=== PATIENT | male | born 1945 | race Caucasian/White ===

== ENCOUNTER 2024-07-02 07:41 | Inpatient (IN) ==
[2024-07-02] MEDS: FAMOTIDINE 20MG IV PUSH 20 MG/5 ML SYR IV STA (08:06)
[2024-07-02] MEDS: ACETAMINOPHEN 1,000 MG/100 ML VIAL IV STA (08:06)
--- NOTE | 2024-07-02 08:08 | Emergency Department Note ---
Impression & Plan Chest pain, Pneumonia ED Provider Note ED Provider Note NAME: BRADY MORIN AGE:79 SEX: Male : 1945 ARRIVES VIA: EMS INFORMANT: Patient ED PROVIDER(s): Layne Crook DO CHIEF COMPLAINT: Chest pain HPI: This is a 79-year-old male presents emergency department via EMS due to 3 to 4 days of intermittent central left chest pain. He denies any radiation of pain into the neck, arms, or back. He states pain is worse with taking deep breath, worse sitting up and standing. Patient states no prior similar episodes. Patient does have a prior history of triple bypass and atrial fibrillation. He is anticoagulated. He denies any recent change in activity or exercise. Denies any recent fevers, chills, or URI symptoms. PAST MEDICAL HISTORY:See Below PAST SURGICAL HISTORY:See Below FAMILY HISTORY:See Below SOCIAL HISTORY:See Below HOME MEDICATIONS:See Below ALLERGIES:See Below VITALS:See Below PHYSICAL EXAMINATION: GENERAL: alert, uncomfortable appearing, well nourished, mild distress, non- toxic EYE EXAM: normal conjunctiva, PERRL and EOM's grossly intact OROPHARYNX: no exudate, no erythema, lips, buccal mucosa, and tongue normal and mucous membranes are moist NECK: supple, no nuchal rigidity, no adenopathy, non-tender LUNGS: Clear to auscultation. Normal chest wall mechanics, no w/r/r HEART: no murmurs, S1 normal and S2 normal, no reproducible pain with palpation. ABDOMEN: abdomen soft, non-tender, normo-active bowel sounds, no masses, no rebound or guarding. BACK: Back is symmetrical on inspection and there is no deformity, no midline tenderness, no CVA tenderness. SKIN: no rashes, petechiae, orbruising UPPER EXTREMITIES: upper extremities are grossly normal. FROM, nml pulses b/l. LOWER EXTREMITIES: No pitting edema. FROM, nml pulses b/l. NEURO EXAM: Normal sensorium, cranial nerves II-XII grossly intact, normal speech, no facial droop,nogross weakness of arms, no gross weakness of legs. Gross sensation intact. No ataxia. Vital Signs: reviewed and remarkable Differential Diagnosis: acute coronary syndrome, pericarditis, pulmonary embolus, aortic dissection, pneumonia, pneumothorax, musculoskeletal pain, shingles, GERD, GI bleed, as well as others were considered MEDICAL DECISION MAKING: CURB 65 - moderate risk This is a 79-year-old male presents emerged part due to 3 to 4 days of intermittent chest pain. No recent trauma. He denied any illness or evolving URI symptoms. He was afebrile and hemodynamically stable on arrival. Labs drawn and sent, IV established, EKG and chest x-ray performed at bedside interpreted by me and patient monitored on telemetry. No acute findings on the EKG. Patient given IV Tylenol, IV Pepcid, and started on IV fluids. Patient noted to have significant leukocytosis of 22. First troponin negative. Chest x-ray is read by outside radiology with possible evolving infiltrate. Due to pain, age, and comorbidities with these new findings, patient sent for CT of the chest. CT revealed pneumonia in the left lower lobe. No PE, or acute vascular pathology noted. I discussed all these results with patient. He was given IV Rocephin, and p.o. challenge. We then discussed use of additional antibiotics. Patient is a former smoker though denies any diagnosis of COPD. Nasal swab for other acute viral illnesses was negative. Patient given oral doxycycline. We did discuss options for disposition. While patient did well in terms of respiratory status during an ambulatory pulse ox, he continued to complain of chest pain and feels weak and more fatigued compared to normal. At significant time in discussion with the patient as well as 2 sisters at bedside regarding his condition. Ultimately decision made to keep patient for further inpatient monitoring and treatment. Case discussed with the hospitalist team for additional evaluation and management. Consultation(s): 1315: Discussed with Ebony Urias hospitalist team, for additional evaluation and management. ER Treatment Provided: See below 1122: Discussed with patient and family at bedside. We did review all results as well as risk associated due to his abnormal labs and comorbidities with pneumonia. Patient has not required oxygen here, has continued to have pain although he states slightly less severe than at home. He does feel slightly more fatigued and weak compared to his normal however admits to chronic back pain and problems walking. He does live with family. We discussed options for disposition. Diagnostics Interpreted By Me: -ECG: Normal sinus at 84, first-degree AV block, normal axis, normal intervals, PVCs noted, no acute ST/T wave change -Cardiac Monitoring: An order was placed for continuous cardiac monitoring. The monitor shows a rate of 80 with normal sinus rhythm. -Laboratory studies: As stated above and show below. -Imaging studies: X-ray Chest: A single view study of the chest was reviewed and was negative for cardiomegaly, focal infiltrate, effusion, pulmonary edema, or wide mediastinum. Triage Nursing Note Reviewed Prior/Outside Records Reviewed Past Med/Surg History Problem List (Updated 07/02/24 @ 13:08 by Layne Crook DO) Pneumonia (Acute) Chest pain (Acute) Social History Smoking Status: Never smoker Hx Alcohol Use: Yes Alcohol type: beer Hx Substance Use: No Preferred Language: Israeli Communication Ability: Effective Phd Intern Required: No Beliefs That Will Affect Care: None Current Living Situation: Spouse Current Living Situation Comment: Lives in [place] with Mery. In [place] with sister for [employer] Feels Safe at Home: Yes Safety Concerns: Feels Safe At This Time Assistive Devices: Glasses and Walker Allergies Allergies Allergy/AdvReac Type Severity Reaction Status Date / Time No Known Allergies Allergy Unverified 07/02/24 09:51 Home Meds Home Medications Medication Instructions Recorded Confirmed allopurinol 100 mg tablet 100 mg PO QPM 07/02/24 07/02/24 amlodipine 10 mg tablet 10 mg PO QAM 07/02/24 07/02/24 carboxymethylcellulose sodium 0.5 1 drp OPB DAILY PRN Dry Eye(S) 07/02/24 07/02/24 % eye drops in a dropperette (Lubricating Plus) celecoxib 200 mg capsule 200 mg PO QAM 07/02/24 07/02/24 cholecalciferol (vitamin D3) 25 25 mcg PO BID 07/02/24 07/02/24 mcg (1,000 unit) tablet ezetimibe 10 mg tablet 10 mg PO QAM 07/02/24 07/02/24 famotidine 40 mg tablet 40 mg PO QAM 07/02/24 07/02/24 losartan 100 1 tab PO QAM 07/02/24 07/02/24 mg-hydrochlorothiazide 12.5 mg tablet metoprolol succinate 100 mg 100 mg PO QPM 07/02/24 07/02/24 tablet,extended release 24 hr multivitamin 1 tab PO QAM 07/02/24 07/02/24 omega-3 acid ethyl esters 1 gram 2 g PO BID 07/02/24 07/02/24 capsule pantoprazole 40 mg tablet,delayed 40 mg PO QAM 07/02/24 07/02/24 release pravastatin 40 mg tablet 40 mg PO QPM 07/02/24 07/02/24 rivaroxaban 20 mg tablet (Xarelto) 20 mg PO QPM 07/02/24 07/02/24 simethicone 80 mg chewable tablet 80 mg PO TID PRN Bloat 07/02/24 07/02/24 Results & Data (ED) Vital Signs Vital Signs - 24 hr 07/02/24 09:00 07/02/24 09:24 07/02/24 09:30 Pulse Rate 83 80 Pulse Rate [Exercises] Pulse Rate from SpO2 Sensor 80 Respiratory Rate 21 23 Blood Pressure 119/70 110/55 L Blood Pressure Mean 89 90 Pulse Oximetry 94 92 Pulse Oximetry [Exercises] Oxygen Delivery Method Room Air 07/02/24 10:00 07/02/24 10:45 07/02/24 10:51 Pulse Rate 66 66 Pulse Rate [Exercises] 74 Pulse Rate from SpO2 Sensor 69 76 Respiratory Rate 24 27 H Blood Pressure 121/70 129/56 L Blood Pressure Mean 87 80 Pulse Oximetry 93 92 Pulse Oximetry [Exercises] 94 Oxygen Delivery Method Room Air Room Air Room Air 07/02/24 12:30 07/02/24 13:00 Pulse Rate 64 66 Pulse Rate [Exercises] Pulse Rate from SpO2 Sensor 65 66 Respiratory Rate 28 H 22 Blood Pressure 119/69 129/70 Blood Pressure Mean 85 89 Pulse Oximetry 92 91 Pulse Oximetry [Exercises] Oxygen Delivery Method Room Air Room Air Laboratory Data 07/03/24 05:52 07/03/24 05:52 Lab Results 07/02/24 07/02/24 Range/Units 07:25 09:00 WBC 22.42 H (4.8-10.8) K/ul RBC 4.78 (4.70-6.10) M/uL Hgb 14.8 (14.0-18.0) g/dl Hct 42.3 (42.0-52.0) % MCV 88.5 (80.0-100.0) fL MCH 31.0 (25.0-34.0) pg MCHC 35.0 (32.0-36.0) g/dL RDW Std Deviation 43.5 (36.4-46.3) fL RDW Coeff of Vera 13.4 (11.5-14.5) % Plt Count 172 (130-400) K/uL MPV 10.8 (9.4-12.4) fL Immature Gran % (Auto) 2.2 % Neut % (Auto) 89.1 % Lymph % (Auto) 2.7 % [place] % (Auto) 5.8 % Eos % (Auto) 0.0 % Baso % (Auto) 0.2 % Neut # (Auto) 19.99 H (1.40-6.50) K/uL Lymph # (Auto) 0.60 L (1.20-3.40) K/uL [place] # (Auto) 1.29 H (0.11-0.59) K/uL Eos # (Auto) 0.00 (0.00-0.50) K/uL Baso # (Auto) 0.05 (0.00-0.20) K/uL Immature Gran # (Auto) 0.49 H (0.01-0.20) K/uL PT 15.5 H (9.0-12.0) Seconds INR 1.5 H (0.9-1.1) Sodium 140 (136-145) mmol/L Potassium 3.9 (3.5-5.1) mmol/L Chloride 103 (98-107) mmol/L Carbon Dioxide 25 (21-32) mmol/L Anion Gap 12 H (3-11) BUN 28 H (6-23) mg/dl Creatinine 1.46 H (0.6-1.4) mg/dl Est Cr Clr Drug Dosing 50.9 ml/min eGFR 48.92 BUN/Creatinine Ratio 19.2 (10-20) Glucose 136 H (70-99(Fasting)) mg/dl Calcium 9.6 (8.6-10.3) mg/dl Total Bilirubin 1.0 (0.2-1.0) mg/dl AST 30 (13-39) U/L ALT 26 (7-52) U/L Alkaline Phosphatase 74 (34-104) U/L Troponin I High Sens 15.5 (0-20) pg/ml Total Protein 7.4 (6.0-8.3) gm/dl Albumin 4.4 (3.4-5.0) gm/dl Globulin 3.0 (2.5-4.0) gm/dl Albumin/Globulin Ratio 1.5 (0.9-2) Lipase 13 (11-82) U/L Adenovirus (PCR) Not Detected (NotDetected) B. pertussis DNA (PCR) Not Detected (NotDetected) B.parapertussis DNA PCR Not Detected (NotDetected) C. pneumoniae DNA (PCR) Not Detected (NotDetected) Coronavirus OC43 (PCR) Not Detected (NotDetected) Coronavirus HKU1 (PCR) Not Detected (NotDetected) Coronavirus 229E (PCR) Not Detected (NotDetected) SARS-CoV-2 (PCR) Not Detected (NotDetected) Coronavirus NL63 (PCR) Not Detected (NotDetected) Human Metapneumovir PCR Not Detected (NotDetected) Influenza Type A (PCR) Not Detected (NotDetected) Influenza Type B (PCR) Not Detected (NotDetected) M. pneumoniae (PCR) Not Detected (NotDetected) Parainfluenza 1 (PCR) Not Detected (NotDetected) Parainfluenza 2 (PCR) Not Detected (NotDetected) Parainfluenza 3 (PCR) Not Detected (NotDetected) Parainfluenza 4 (PCR) Not Detected (NotDetected) RSV (PCR) Not Detected (NotDetected) Entero/Rhino (PCR) Not Detected (NotDetected) Administered Medications Amlodipine Besylate (Amlodipine Besylate 5 Mg Tab) 10 mg PO QAM [facility] Stop: 08/02/24 08:59 Last Admin: 07/03/24 07:47 Dose: 10 mg Documented By: PAULINO Doxycycline Hyclate (Doxycycline Hyclate 100 Mg Cap) 100 mg PO BID [facility] Stop: 07/07/24 20:59 Last Admin: 07/03/24 07:46 Dose: 100 mg Documented By: Admin: 07/02/24 20:31 Dose: 100 mg Documented By: RAOUL Ezetimibe (Ezetimibe 10 Mg Tab) 10 mg PO QAM [facility] Stop: 08/02/24 08:59 Last Admin: 07/03/24 07:46 Dose: 10 mg Documented By: PAULINO Famotidine (Famotidine 40 Mg Tablet) 40 mg PO QAM [facility] Stop: 08/02/24 08:59 Last Admin: 07/03/24 07:47 Dose: 40 mg Documented By: PAULINO Fish Oil ([place]-3 (Purified Fish Oil) 1 Gm Cap) 2 cap PO BID [facility] Stop: 08/01/24 20:59 Last Admin: 07/03/24 07:46 Dose: 2 cap Documented By: Admin: 07/02/24 20:31 Dose: 2 cap Documented By: RAOUL Ceftriaxone Sodium (Rocephin) 1,000 mg in 50 mls @ 100 mls/hr IV Q24H [facility] Stop: 07/07/24 15:30 Last Infusion: 07/02/24 16:26 Dose: Infused Documented By: Admin: 07/02/24 15:57 Dose: 100 mls/hr Documented By: BENEDICT Metoprolol Succinate (Metoprolol Succ 50mg Ext Rel Tab) 100 mg PO QPM [facility] Stop: 08/01/24 20:59 Last Admin: 07/02/24 20:32 Dose: 100 mg Documented By: RAOUL Multivitamins (Multivitamin Tab) 1 tab PO QAM [facility] Stop: 08/02/24 08:59 Last Admin: 07/03/24 07:46 Dose: 1 tab Documented By: PAULINO Pantoprazole Sodium (Pantoprazole 40 Mg Tab) 40 mg PO QAM [facility] Stop: 08/02/24 08:59 Last Admin: 07/03/24 07:47 Dose: 40 mg Documented By: PAULINO Pravastatin Sodium (Pravastatin Sod 40 Mg Tab) 40 mg PO QPM [facility] Stop: 08/01/24 20:59 Last Admin: 07/02/24 20:32 Dose: 40 mg Documented By: RAOUL Rivaroxaban (Rivaroxaban 20 Mg Tab) 20 mg PO QPM [facility] Stop: 08/01/24 20:59 Last Admin: 07/02/24 20:32 Dose: 20 mg Documented By: RAOUL Vitamin D (Cholecalciferol 25 Mcg (1000 Units) Tab) 25 mcg PO BID [facility] Stop: 08/01/24 20:59 Last Admin: 07/03/24 07:46 Dose: 25 mcg Documented By: Admin: 07/02/24 20:31 Dose: 25 mcg Documented By: RAOUL Discontinued Medications Acetaminophen (Acetaminophen 325 Mg Tab) 650 mg PO NOW STA Stop: 07/02/24 14:53 Last Admin: 07/02/24 14:55 Dose: 650 mg Documented By: DIANA Famotidine (Pepcid 20mg Iv Push) 20 mg in 5 mls @ 2.5 mls/min IV NOW STA Stop: 07/02/24 08:01 Last Admin: 07/02/24 08:06 Dose: 2.5 mls/min Documented By: DIANA Acetaminophen (Ofirmev) 1,000 mg in 100 mls @ 400 mls/hr IV NOW STA Stop: 07/02/24 08:14 Last Infusion: 07/02/24 08:38 Dose: Infused Documented By: Admin: 07/02/24 08:06 Dose: 400 mls/hr Documented By: DIANA Ceftriaxone Sodium (Rocephin) 2,000 mg in 50 mls @ 100 mls/hr IV NOW STA Stop: 07/02/24 10:17 Last Infusion: 07/02/24 10:34 Dose: Infused Documented By: Admin: 07/02/24 10:03 Dose: 100 mls/hr Documented By: DIANA Ioversol (Optiray 320 125ml) 119 ml IV ONCE ONE Stop: 07/02/24 09:12 Last Admin: 07/02/24 09:11 Dose: 119 ml Documented By: MOIRA Imaging Data Radiologist's Impression: Chest X-Ray 07/02/24 07:59 EXAM: Radiograph of the Chest 1 View INDICATION: Chest pain. TECHNIQUE: Frontal view of the chest. COMPARISON: No relevant prior studies available. FINDINGS: Lungs and pleural spaces: Shallow inspiration. Vascular crowding noted with mild superimposed patchy infiltrate in the left base. No pleural effusion or pneumothorax. Heart: Cardiomegaly. Mediastinum: Normal contour. Bones/joints: No fracture, erosion or dislocation. Soft tissues: No abnormality noted. No radiopaque foreign body noted. Upper abdomen: No abnormality noted. IMPRESSION: Shallow inspiration with mild patchy left basilar atelectasis or developing pneumonia. ACT 112: Negative or not required by law. Electronically signed by Tisha Leavitt 07-02-2024 08:33 AM Chest CTA 07/02/24 08:58 EXAM: CT Angiography Chest With Intravenous Contrast INDICATION: 4 days left chest pain. TECHNIQUE: Axial computed tomographic angiography images of the chest with intravenous contrast. Sagittal and coronal reformatted images were created and reviewed. This CT exam was performed using one or more of the following dose reduction techniques: automated exposure control, adjustment of the mA and/or kV according to patient size, and/or use of iterative reconstruction technique. MIP reconstructed images were created and reviewed. CONTRAST: 119ml of Optiray 320 was administered intravenously. COMPARISON: No relevant prior studies available. FINDINGS: Pulmonary arteries: The main pulmonary artery is dilated to 4 cm. No pulmonary arterial emboli noted. Aorta: No acute change noted. No thoracic aortic aneurysm or dissection. Lungs and pleural spaces: 2 mm right upper lobe pulmonary nodule series 3 image 72. 7r 3 mm fissural nodule superior aspect of the right major fissure series 3 image 84. No bronchiectasis, honeycombing or reticulation. Airway thickening and asymmetric peribronchial groundglass density noted in the left lower lobe. No consolidation. No significant effusion. Heart: Global cardiomegaly. No pericardial effusion. No evidence of RV dysfunction. Mediastinum: Small hiatal hernia noted. Bones/joints: Degenerative changes noted in the spine. No acute osseous abnormality identified. Partially united sternotomy with intact wires. Soft tissues: No abnormality noted. Lymph nodes: No abnormality noted. No enlarged lymph nodes. IMPRESSION: 1. No pulmonary embolus identified. 2. Mild bronchiectasis and possible developing groundglass pneumonia in the left lower lobe. 3. 2 mm low suspicion right upper lobe pulmonary nodule. Fleischner Society Guidelines (MacMahon, et al. Radiology 2017; 284(1):228-43) suggest the following. For low-risk or high-risk patients consider chest CT at 12 months due to the morphology and/or location of this nodule. ACT 112: Negative or not required by law. Electronically signed by Tisha Leavitt 07-02-2024 09:27 AM Discharge Plan Visit Data Chief Complaint: Chest Pain Stated Complaint: CHEST PAIN ED Provider: Layne Crook Discharge Problem: Chest pain, Pneumonia Patient Disposition: Admitted As Inpatient Discharge Instructions Interventions: ED Discharge Assessment Last Done: 07/02/24 16:52
[2024-07-02 08:30] LABS: Basophils # (auto) 0.05 K/uL (0.00-0.20); Basophils % (auto) 0.2 %; Hematocrit (blood only) 42.3 % (42.0-52.0); Hemoglobin 14.8 g/dl (14.0-18.0); Immature Granulocytes # (auto) 0.49 K/uL (0.01-0.20); Immature Granulocytes % (auto) 2.2 %; Lymphocytes % (auto) 2.7 %; Mean Corpuscular Volume 88.5 fL (80.0-100.0); Mean Platelet Volume 10.8 fL (9.4-12.4); Monocytes # (auto) 1.29 K/uL (0.11-0.59); Monocytes % (auto) 5.8 %; Neutrophils # (auto) 19.99 K/uL (1.40-6.50); Neutrophils % (auto) 89.1 %; Platelet Count 172 K/uL (130-400); RDW Coefficient of Variation 13.4 % (11.5-14.5); RDW Standard Deviation 43.5 fL (36.4-46.3); Red Blood Count 4.78 M/uL (4.70-6.10); White Blood Count 22.42 K/ul (4.8-10.8)
--- NOTE | 2024-07-02 08:33 | XRay Report ---
EXAM: Radiograph of the Chest 1 View INDICATION: Chest pain. TECHNIQUE: Frontal view of the chest. COMPARISON: No relevant prior studies available. FINDINGS: Lungs and pleural spaces: Shallow inspiration. Vascular crowding noted with mild superimposed patchy infiltrate in the left base. No pleural effusion or pneumothorax. Heart: Cardiomegaly. Mediastinum: Normal contour. Bones/joints: No fracture, erosion or dislocation. Soft tissues: No abnormality noted. No radiopaque foreign body noted. Upper abdomen: No abnormality noted. IMPRESSION: Shallow inspiration with mild patchy left basilar atelectasis or developing pneumonia. ACT 112: Negative or not required by law. Electronically signed by Tisha Leavitt 07-02-2024 08:33 AM
[2024-07-02 08:41] LABS: Albumin Globulin Ratio 1.5 (0.9-2); Albumin Level 4.4 gm/dl (3.4-5.0); BUN Creatinine Ratio 19.2 (10-20); Calcium 9.6 mg/dl (8.6-10.3); Creatinine Clr Calc Pharmacy 50.9 ml/min; Potassium 3.9 mmol/L (3.5-5.1); Total Protein 7.4 gm/dl (6.0-8.3)
[2024-07-02 08:47] LABS: INR 1.5 (0.9-1.1); Prothrombin Time 15.5 Seconds (9.0-12.0)
[2024-07-02 08:48] LABS: Troponin I High Sensitivity 15.5 pg/ml (0-20)
[2024-07-02] MEDS: OPTIRAY 320 125ml IV ONE (09:11)
--- NOTE | 2024-07-02 09:31 | CT Scan Report ---
EXAM: CT Angiography Chest With Intravenous Contrast INDICATION: 4 days left chest pain. TECHNIQUE: Axial computed tomographic angiography images of the chest with intravenous contrast. Sagittal and coronal reformatted images were created and reviewed. This CT exam was performed using one or more of the following dose reduction techniques: automated exposure control, adjustment of the mA and/or kV according to patient size, and/or use of iterative reconstruction technique. MIP reconstructed images were created and reviewed. CONTRAST: 119ml of Optiray 320 was administered intravenously. COMPARISON: No relevant prior studies available. FINDINGS: Pulmonary arteries: The main pulmonary artery is dilated to 4 cm. No pulmonary arterial emboli noted. Aorta: No acute change noted. No thoracic aortic aneurysm or dissection. Lungs and pleural spaces: 2 mm right upper lobe pulmonary nodule series 3 image 72. 7r 3 mm fissural nodule superior aspect of the right major fissure series 3 image 84. No bronchiectasis, honeycombing or reticulation. Airway thickening and asymmetric peribronchial groundglass density noted in the left lower lobe. No consolidation. No significant effusion. Heart: Global cardiomegaly. No pericardial effusion. No evidence of RV dysfunction. Mediastinum: Small hiatal hernia noted. Bones/joints: Degenerative changes noted in the spine. No acute osseous abnormality identified. Partially united sternotomy with intact wires. Soft tissues: No abnormality noted. Lymph nodes: No abnormality noted. No enlarged lymph nodes. IMPRESSION: 1. No pulmonary embolus identified. 2. Mild bronchiectasis and possible developing groundglass pneumonia in the left lower lobe. 3. 2 mm low suspicion right upper lobe pulmonary nodule. Fleischner Society Guidelines (MacMahon, et al. Radiology 2017; 284(1):228-43) suggest the following. For low-risk or high-risk patients consider chest CT at 12 months due to the morphology and/or location of this nodule. ACT 112: Negative or not required by law. Electronically signed by Tisha Leavitt 07-02-2024 09:27 AM
[2024-07-02] MEDS: cefTRIAXone SODIUM 2,000 MG/50 ML BAG IV STA (10:03)
[2024-07-02 10:09] LABS: Adenovirus PCR Not Detected (NotDetected); Bordetella parapertussis PCR Not Detected (NotDetected); Bordetella pertussis PCR Not Detected (NotDetected); Chlamydia pneumoniae PCR Not Detected (NotDetected); Coronavirus 229E PCR Not Detected (NotDetected); Coronavirus CoV-2 (COVID19)PCR Not Detected (NotDetected); Coronavirus HKU1 PCR Not Detected (NotDetected); Coronavirus NL63 PCR Not Detected (NotDetected); Coronavirus OC43PCR Not Detected (NotDetected); Human Metapneumovirus PCR Not Detected (NotDetected); Influenza A PCR Not Detected (NotDetected); Influenza B PCR Not Detected (NotDetected); Mycoplasma pneumoniae PCR Not Detected (NotDetected); Parainfluenza Virus 1 PCR Not Detected (NotDetected); Parainfluenza Virus 2 PCR Not Detected (NotDetected); Parainfluenza Virus 3 PCR Not Detected (NotDetected); Parainfluenza Virus 4 PCR Not Detected (NotDetected); Respiratory Syncytial VirusPCR Not Detected (NotDetected); Rhinovirus/Enterovirus PCR Not Detected (NotDetected)
--- NOTE | 2024-07-02 13:08 | Electrocardiogram Report ---
Test Reason : Blood Pressure : */* mmHG Vent. Rate : 84 BPM Atrial Rate : 84 BPM P-R Int : 246 ms QRS Dur : 80 ms QT Int : 380 ms P-R-T Axes : 5 7 33 degrees QTcB Int : 449 ms Sinus rhythm with sinus arrhythmia with 1st degree A-V block with frequent Premature ventricular comp lexes Otherwise normal ECG No previous ECGs available Confirmed by Robert Mazariegos ([id number]) on 07/02/2024 1:07:48 PM Referred By: REFERRED SELF Confirmed By: Robert Mazariegos
--- NOTE | 2024-07-02 14:36 | History & Physical Report ---
<Statement entered by Rachid Marks DO - 07/02/24 15:18> I have seen and examined the patient and have discussed the case with the provider above. I have reviewed the advanced practitioner's documentation, and I agree with, and take responsibility for that plan of care. Patient seen and examined while still in the emergency department. Patient very hard of hearing. Reports does hurt in his left side of his chest when he takes a deep breath. Physical exam: Lungs: Decreased breath sounds bilaterally, few faint crackles left base Diagnostics reviewed Patient with developing left lower lobe pneumonia with pleuritic symptoms Plan of care as outlined below and discussed with ANNMARIE Date of Service July 02, 2024 Assessment & Plan (1) Pneumonia: (2) Chest pain: Plan Assessment and plan: Community-acquired pneumonia: Noted on chest x-ray and chest CT Continue IV ceftriaxone/p.o. Doxy, monitor leukocytosis Reports chills/rigors but no documented fever Currently not hypoxic KATE: Creatinine 1.46, unsure of baseline, recheck CMP in a.m. and hold nephrotoxic agents Hx HTN/AF/HLD: Heart rate controlled, continue Xarelto/metoprolol/statin Hold losartan/HCTZ with KATE Hx GERD: Continue pantoprazole/Pepcid Full code DVT prophylaxis: Xarelto A total of 60 minutes was spent on chart review/reviewing diagnostic data/facilitating plan of care/discussion with consultants History of Present Illness Chief Complaint: Left-sided chest pain Primary Care Provider: ANUJ CORLEY The patient is a 79-year-old male with a past medical history of atrial fibrillation, gout, HTN, HLD, GERD, triple bypass, who presented to the ED on 07/02/2024 with complaints of 3-4 days of intermittent central left chest pain. He denies any radiation of this pain to his neck or his left arm. He denies any shortness of breath associated with this. Reports the pain is worse with taking a deep breath. He denies any cough/fever/chills/nausea/vomiting/diarrhea. No hypoxia was noted, on exam, patient is in no apparent distress. On arrival to the ED, labs remarkable for WBC 22, neutrophils 19 anion gap 12, creatinine 1.46 Respiratory panel negative, troponin negative, EKG with no acute changes Chest x-ray showed mild patchy left basilar atelectasis versus developing pneumonia Chest CTA showed possible developing groundglass pneumonia in the left lower lobe, negative for PE, incidental right upper lobe pulmonary nodule noted He was given IV antibiotics and IV fluids in the ED The patient will be admitted for further management of pneumonia Allergies Allergy/AdvReac Type Severity Reaction Status Date / Time No Known Allergies Allergy Unverified 07/02/24 09:51 Home Medications Medication Instructions Recorded Confirmed Type allopurinol 100 mg tablet 100 mg PO QPM 07/02/24 07/02/24 History amlodipine 10 mg tablet 10 mg PO QAM 07/02/24 07/02/24 History carboxymethylcellulose sodium 0.5 1 drp OPB DAILY PRN Dry Eye(S) 07/02/24 07/02/24 History % eye drops in a dropperette (Lubricating Plus) celecoxib 200 mg capsule 200 mg PO QAM 07/02/24 07/02/24 History cholecalciferol (vitamin D3) 25 25 mcg PO BID 07/02/24 07/02/24 History mcg (1,000 unit) tablet ezetimibe 10 mg tablet 10 mg PO QAM 07/02/24 07/02/24 History famotidine 40 mg tablet 40 mg PO QAM 07/02/24 07/02/24 History losartan 100 1 tab PO QAM 07/02/24 07/02/24 History mg-hydrochlorothiazide 12.5 mg tablet metoprolol succinate 100 mg 100 mg PO QPM 07/02/24 07/02/24 History tablet,extended release 24 hr multivitamin 1 tab PO QAM 07/02/24 07/02/24 History omega-3 acid ethyl esters 1 gram 2 g PO BID 07/02/24 07/02/24 History capsule pantoprazole 40 mg tablet,delayed 40 mg PO QAM 07/02/24 07/02/24 History release pravastatin 40 mg tablet 40 mg PO QPM 07/02/24 07/02/24 History rivaroxaban 20 mg tablet (Xarelto) 20 mg PO QPM 07/02/24 07/02/24 History simethicone 80 mg chewable tablet 80 mg PO TID PRN Bloat 07/02/24 07/02/24 History Past Med/Surg History Problem List (Updated 07/02/24 @ 13:08 by Layne Crook DO) Pneumonia (Acute) Chest pain (Acute) Social History Smoking Status: Never smoker Preferred Language: Tunisian Feels Safe at Home: Yes Review of Systems Review of Systems: All systems reviewed & are unremarkable except as noted in HPI & below Physical Exam Constitutional: WD/WN, vitals as above well developed; no acute distress Eyes: PERRL, conjunctivae normal, anicteric sclerae ENMT: external ear and nose normal, oropharynx normal Neck: trachea midline, no thyromegaly Respiratory: normal respiratory effort, lungs clear to auscultation Cardiovascular: RRR, no murmur, no edema (Diminished lung sounds) Gastrointestinal (Abdomen): normal bowel sounds, soft, nontender, no hepatosplenomegaly Musculoskeletal: no cyanosis or clubbing, extremities motor strength 5/5 Skin: no rashes, warm and dry Neurologic: PERRL, EOMI, accommodation nl, no face palsy, no dysarthria Psychiatric: A+Ox3, euthymic affect Lymphatic: no cervical or axillary lymphadenopathy Results & Data Results & Data Vital Signs (Past 12 Hours) Vital Signs Temp Pulse Pulse Resp BP Pulse Ox Pulse Ox 07/02/24 10:51 74 94 07/02/24 10:45 66 27 H 129/56 L 92 07/02/24 10:00 66 24 121/70 93 07/02/24 09:30 110/55 L 07/02/24 09:24 80 23 92 07/02/24 09:00 83 21 119/70 94 07/02/24 08:30 71 24 94 07/02/24 07:59 70 21 94 07/02/24 07:53 37.5 C 84 20 122/72 95 07/02/24 07:51 85 O2 Del Method 07/02/24 10:51 Room Air 07/02/24 10:45 Room Air 07/02/24 10:00 Room Air 07/02/24 09:30 07/02/24 09:24 07/02/24 09:00 Room Air 07/02/24 08:30 Room Air 07/02/24 07:59 07/02/24 07:53 Room Air 07/02/24 07:51 Diagnostic Findings Laboratory Results WBC 22.42 K/ul (4.8-10.8) H 07/02/24 07:25 RBC 4.78 M/uL (4.70-6.10) 07/02/24 07:25 Hgb 14.8 g/dl (14.0-18.0) 07/02/24 07:25 Hct 42.3 % (42.0-52.0) 07/02/24 07:25 MCV 88.5 fL (80.0-100.0) 07/02/24 07:25 MCH 31.0 pg (25.0-34.0) 07/02/24 07:25 MCHC 35.0 g/dL (32.0-36.0) 07/02/24 07:25 RDW Std Deviation 43.5 fL (36.4-46.3) 07/02/24 07:25 RDW Coeff of Vera 13.4 % (11.5-14.5) 07/02/24 07:25 Plt Count 172 K/uL (130-400) 07/02/24 07:25 MPV 10.8 fL (9.4-12.4) 07/02/24 07:25 Immature Gran % (Auto) 2.2 % 07/02/24 07:25 Neut % (Auto) 89.1 % 07/02/24 07:25 Lymph % (Auto) 2.7 % 07/02/24 07:25 [place] % (Auto) 5.8 % 07/02/24 07:25 Eos % (Auto) 0.0 % 07/02/24 07:25 Baso % (Auto) 0.2 % 07/02/24 07:25 Neut # (Auto) 19.99 K/uL (1.40-6.50) H 07/02/24 07:25 Lymph # (Auto) 0.60 K/uL (1.20-3.40) L 07/02/24 07:25 [place] # (Auto) 1.29 K/uL (0.11-0.59) H 07/02/24 07:25 Eos # (Auto) 0.00 K/uL (0.00-0.50) 07/02/24 07:25 Baso # (Auto) 0.05 K/uL (0.00-0.20) 07/02/24 07:25 Immature Gran # (Auto) 0.49 K/uL (0.01-0.20) H 07/02/24 07:25 PT 15.5 Seconds (9.0-12.0) H 07/02/24 07:25 INR 1.5 (0.9-1.1) H 07/02/24 07:25 Sodium 140 mmol/L (136-145) 07/02/24 07:25 Potassium 3.9 mmol/L (3.5-5.1) 07/02/24 07:25 Chloride 103 mmol/L (98-107) 07/02/24 07:25 Carbon Dioxide 25 mmol/L (21-32) 07/02/24 07:25 Anion Gap 12 (3-11) H 07/02/24 07:25 BUN 28 mg/dl (6-23) H 07/02/24 07:25 Creatinine 1.46 mg/dl (0.6-1.4) H 07/02/24 07:25 Est Cr Clr Drug Dosing 50.9 ml/min 07/02/24 07:25 eGFR 48.92 07/02/24 07:25 BUN/Creatinine Ratio 19.2 (10-20) 07/02/24 07:25 Glucose 136 mg/dl (70-99(Fasting)) H 07/02/24 07:25 Calcium 9.6 mg/dl (8.6-10.3) 07/02/24 07:25 Total Bilirubin 1.0 mg/dl (0.2-1.0) 07/02/24 07:25 AST 30 U/L (13-39) 07/02/24 07:25 ALT 26 U/L (7-52) 07/02/24 07:25 Alkaline Phosphatase 74 U/L (34-104) 07/02/24 07:25 Troponin I High Sens 15.5 pg/ml (0-20) 07/02/24 07:25 Total Protein 7.4 gm/dl (6.0-8.3) 07/02/24 07:25 Albumin 4.4 gm/dl (3.4-5.0) 07/02/24 07:25 Globulin 3.0 gm/dl (2.5-4.0) 07/02/24 07:25 Albumin/Globulin Ratio 1.5 (0.9-2) 07/02/24 07:25 Lipase 13 U/L (11-82) 07/02/24 07:25 Adenovirus (PCR) Not Detected (NotDetected) 07/02/24 09:00 B. pertussis DNA (PCR) Not Detected (NotDetected) 07/02/24 09:00 B.parapertussis DNA PCR Not Detected (NotDetected) 07/02/24 09:00 C. pneumoniae DNA (PCR) Not Detected (NotDetected) 07/02/24 09:00 Coronavirus OC43 (PCR) Not Detected (NotDetected) 07/02/24 09:00 Coronavirus HKU1 (PCR) Not Detected (NotDetected) 07/02/24 09:00 Coronavirus 229E (PCR) Not Detected (NotDetected) 07/02/24 09:00 SARS-CoV-2 (PCR) Not Detected (NotDetected) 07/02/24 09:00 Coronavirus NL63 (PCR) Not Detected (NotDetected) 07/02/24 09:00 Human Metapneumovir PCR Not Detected (NotDetected) 07/02/24 09:00 Influenza Type A (PCR) Not Detected (NotDetected) 07/02/24 09:00 Influenza Type B (PCR) Not Detected (NotDetected) 07/02/24 09:00 M. pneumoniae (PCR) Not Detected (NotDetected) 07/02/24 09:00 Parainfluenza 1 (PCR) Not Detected (NotDetected) 07/02/24 09:00 Parainfluenza 2 (PCR) Not Detected (NotDetected) 07/02/24 09:00 Parainfluenza 3 (PCR) Not Detected (NotDetected) 07/02/24 09:00 Parainfluenza 4 (PCR) Not Detected (NotDetected) 07/02/24 09:00 RSV (PCR) Not Detected (NotDetected) 07/02/24 09:00 Entero/Rhino (PCR) Not Detected (NotDetected) 07/02/24 09:00 Impressions Chest X-Ray 07/02/24 07:59 EXAM: Radiograph of the Chest 1 View INDICATION: Chest pain. TECHNIQUE: Frontal view of the chest. COMPARISON: No relevant prior studies available. FINDINGS: Lungs and pleural spaces: Shallow inspiration. Vascular crowding noted with mild superimposed patchy infiltrate in the left base. No pleural effusion or pneumothorax. Heart: Cardiomegaly. Mediastinum: Normal contour. Bones/joints: No fracture, erosion or dislocation. Soft tissues: No abnormality noted. No radiopaque foreign body noted. Upper abdomen: No abnormality noted. IMPRESSION: Shallow inspiration with mild patchy left basilar atelectasis or developing pneumonia. ACT 112: Negative or not required by law. Electronically signed by Tisha Leavitt 07-02-2024 08:33 AM Chest CTA 07/02/24 08:58 EXAM: CT Angiography Chest With Intravenous Contrast INDICATION: 4 days left chest pain. TECHNIQUE: Axial computed tomographic angiography images of the chest with intravenous contrast. Sagittal and coronal reformatted images were created and reviewed. This CT exam was performed using one or more of the following dose reduction techniques: automated exposure control, adjustment of the mA and/or kV according to patient size, and/or use of iterative reconstruction technique. MIP reconstructed images were created and reviewed. CONTRAST: 119ml of Optiray 320 was administered intravenously. COMPARISON: No relevant prior studies available. FINDINGS: Pulmonary arteries: The main pulmonary artery is dilated to 4 cm. No pulmonary arterial emboli noted. Aorta: No acute change noted. No thoracic aortic aneurysm or dissection. Lungs and pleural spaces: 2 mm right upper lobe pulmonary nodule series 3 image 72. 7r 3 mm fissural nodule superior aspect of the right major fissure series 3 image 84. No bronchiectasis, honeycombing or reticulation. Airway thickening and asymmetric peribronchial groundglass density noted in the left lower lobe. No consolidation. No significant effusion. Heart: Global cardiomegaly. No pericardial effusion. No evidence of RV dysfunction. Mediastinum: Small hiatal hernia noted. Bones/joints: Degenerative changes noted in the spine. No acute osseous abnormality identified. Partially united sternotomy with intact wires. Soft tissues: No abnormality noted. Lymph nodes: No abnormality noted. No enlarged lymph nodes. IMPRESSION: 1. No pulmonary embolus identified. 2. Mild bronchiectasis and possible developing groundglass pneumonia in the left lower lobe. 3. 2 mm low suspicion right upper lobe pulmonary nodule. Fleischner Society Guidelines (MacMahon, et al. Radiology 2017; 284(1):228-43) suggest the following. For low-risk or high-risk patients consider chest CT at 12 months due to the morphology and/or location of this nodule. ACT 112: Negative or not required by law. Electronically signed by Tisha Leavitt 07-02-2024 09:27 AM
[2024-07-02] MEDS: ACETAMINOPHEN 325 MG TAB PO STA (14:55)
[2024-07-02] MEDS ORDERED: ACETAMINOPHEN 325 MG TAB PO PRN (15:31)
[2024-07-02] MEDS: cefTRIAXone SODIUM 1,000 MG/50 ML BAG IV SCH (15:57)
[2024-07-02] MEDS: OMEGA-3 (PURIFIED FISH OIL) 1 GM CAP PO SCH (20:31)
[2024-07-02] MEDS: DOXYCYCLINE HYCLATE 100 MG CAP PO SCH (20:31)
[2024-07-02] MEDS: CHOLECALCIFEROL 25 MCG (1000 UNITS) TAB PO SCH (20:31)
[2024-07-02] MEDS: METOPROLOL SUCC 50MG EXT REL TAB PO SCH (20:32)
[2024-07-02] MEDS: RIVAROXABAN 20 MG TAB PO SCH (20:32)
[2024-07-02] MEDS: PRAVASTATIN SOD 40 MG TAB PO SCH (20:32)
[2024-07-03 06:34] LABS: Basophils # (auto) 0.04 K/uL (0.00-0.20); Basophils % (auto) 0.3 %; Eosinophils # (auto) 0.04 K/uL (0.00-0.50); Eosinophils % (auto) 0.3 %; Hematocrit (blood only) 38.9 % (42.0-52.0); Hemoglobin 13.4 g/dl (14.0-18.0); Immature Granulocytes # (auto) 0.08 K/uL (0.01-0.20); Immature Granulocytes % (auto) 0.7 %; Lymphocytes # (auto) 0.92 K/uL (1.20-3.40); Lymphocytes % (auto) 7.7 %; Mean Corpuscular Hemoglobin 30.7 pg (25.0-34.0); Mean Corpuscular Hgb Conc 34.4 g/dL (32.0-36.0); Mean Corpuscular Volume 89.2 fL (80.0-100.0); Mean Platelet Volume 10.2 fL (9.4-12.4); Monocytes # (auto) 0.59 K/uL (0.11-0.59); Monocytes % (auto) 4.9 %; Neutrophils # (auto) 10.25 K/uL (1.40-6.50); Neutrophils % (auto) 86.1 %; Platelet Count 126 K/uL (130-400); RDW Coefficient of Variation 13.5 % (11.5-14.5); RDW Standard Deviation 44.1 fL (36.4-46.3); Red Blood Count 4.36 M/uL (4.70-6.10); White Blood Count 11.92 K/ul (4.8-10.8)
[2024-07-03 06:47] LABS: Albumin Globulin Ratio 1.3 (0.9-2); Albumin Level 3.5 gm/dl (3.4-5.0); BUN Creatinine Ratio 17.4 (10-20); Bilirubin,Total 0.6 mg/dl (0.2-1.0); Calcium 8.6 mg/dl (8.6-10.3); Creatinine Clr Calc Pharmacy 59.8 ml/min; Globulin 2.7 gm/dl (2.5-4.0); Potassium 3.6 mmol/L (3.5-5.1); Total Protein 6.2 gm/dl (6.0-8.3)
[2024-07-03] MEDS: MULTIVITAMIN TAB PO SCH (07:46)
[2024-07-03] MEDS: EZETIMIBE 10 MG TAB PO SCH (07:46)
[2024-07-03] MEDS: FAMOTIDINE 40 MG TABLET PO SCH (07:47)
[2024-07-03] MEDS: PANTOprazole 40 MG TAB PO SCH (07:47)
[2024-07-03] MEDS: amLODIPine BESYLATE 5 MG TAB PO SCH (07:47)
--- NOTE | 2024-07-03 12:08 | Hospitalist Progress Note ---
Date of Service July 03, 2024 Assessment & Plan (1) Pneumonia: (2) Chest pain: Plan 79-year-old male with PMH of A-fib, gout, HTN, HLD, GERD, triple bypass presented to the ED 07/02 with complaint of intermittent left-sided chest pain for 3 to 4 days ago [employer], worse w/ taking a deep breath. He denied fever, radiation of pain to neck or left arm. He is being managed for the following: Likely Community-acquired pneumonia: Sepsis POA: Secondary to above. WBC and respiratory rate elevated at presentation. Patient presented with left-sided chest pain worse with taking a deep breath. Patient reported chills and rigors but no documented fever. Noted to be in sepsis at presentation. Admitting CTA chest with no PE, developing pneumonia in left lower lobe. 2 mm right upper lobe pulmonary nodule. WBC trending down, patient reports feeling some better. Continue with Rocephin 07/02 and Doxy 07/02. Continue to monitor, add probiotic. RLE cellulitis: noted tender/erythematous RLE 12/1 AM exam, pt on antibiotic, will get rle venous doppler to ro dvt. Atb as above. Acute kidney injury: Creatinine elevated at 1.46 at presentation, improved to 1.21 next day. Baseline unknown. Continue to monitor. Resume blood pressure medications gradually. Continue to hold celecoxib. Other chronic medical conditions: Continue with/resume home meds as and when able. HTN/AF/HLD: Continue home Xarelto, metoprolol, statin, HCTZ and losartan. GERD: Continue home pantoprazole Full code DVT prophylaxis: Patient on Xarelto Updated pt's cherie Gutierrez at bedside, answered all her questions. They voiced understanding and are agreeable to plan of care. Admission and Anticipated Discharge Date Admission Date: July 02, 2024 Subjective Patient was seen and examined at bedside. Patient was lying in bed, on room air, NAD. Patient reports left lower chest pain with deep breathing, somewhat improving since admission. Still appears ill/frail/exhausted. Patient reports eating okay, denies nausea and vomiting. Physical Exam Physical Exam: GENERAL: Alert and oriented x3. NAD, on RA. HEENT: No pallor, no icterus. Pupils equal, round and reactive to light. Oral mucosa moist. NECK: No JVD, no neck masses. HEART: S1 and S2 heard. Regular rate and rhythm. No murmur, no gallop. RESPIRATORY SYSTEM: Normal AP diameter. No accessory muscle use. No wheezing, left basal crackles. ABDOMEN: Soft, bowel sounds present, nontender, no distention. CENTRAL NERVOUS SYSTEM: No facial droop. Speech is clear. Obeys simple commands. Moves extremities. EXTREMITIES: No edema, no erythema seen x LLE. RLE trace/1+ edema a/w warmth and tender. Results & Data Results & Data Vital Signs (Past 12 Hours) Vital Signs Temp Pulse Pulse Resp BP Pulse Ox O2 Del Method 07/03/24 08:44 37.7 C H 89 16 157/80 H 91 Room Air 07/03/24 08:16 Room Air 07/03/24 06:42 84 07/03/24 03:19 36.9 C 84 18 129/71 94 Room Air 07/03/24 00:00 37.0 C 89 18 144/75 H 96 Room Air
[2024-07-03] MEDS: ADVANCED PROBIOTIC 625 MG CAPSULE PO SCH (12:36)
--- NOTE | 2024-07-03 15:52 | Ultrasound Report ---
EXAM: US Duplex Right Lower Extremity Veins INDICATION: History Reason For Study TECHNIQUE: Real-time duplex ultrasound scan of the right lower extremity veins integrating B-mode two-dimensional vascular structure, Doppler spectral analysis, color flow Doppler imaging and compression. COMPARISON: No relevant prior studies available. FINDINGS: Deep veins: No DVT in the visualized common femoral, femoral or popliteal veins. The veins demonstrate normal color flow, are normally compressible, with normal phasic flow and/or augmentation response. Superficial veins: No abnormality noted. No thrombus in the visualized great saphenous vein. Soft tissues: Mild subcutaneous edema noted. No fluid collection. Lymph nodes: Enlarged node in the right groin measures 5.4 x 1.6 cm with maintained fatty hilum. IMPRESSION: 1. No deep venous thrombosis of the right lower extremity. 2. Nonspecific enlarged right inguinal lymph node. Correlate clinically. ACT 112: Negative or not required by law. Electronically signed by Tisha Leavitt 07-03-2024 3:51 PM
[2024-07-03] MEDS: allopurinoL 100 MG TAB PO SCH (20:33)
[2024-07-04] MEDS: hydroCHLOROthiazide 25 MG TAB PO SCH (07:29)
[2024-07-04 07:30] LABS: Hematocrit (blood only) 39.2 % (42.0-52.0); Hemoglobin 13.6 g/dl (14.0-18.0); Mean Corpuscular Hemoglobin 30.8 pg (25.0-34.0); Mean Corpuscular Hgb Conc 34.7 g/dL (32.0-36.0); Mean Corpuscular Volume 88.9 fL (80.0-100.0); Mean Platelet Volume 10.7 fL (9.4-12.4); Platelet Count 131 K/uL (130-400); RDW Coefficient of Variation 13.3 % (11.5-14.5); RDW Standard Deviation 43.7 fL (36.4-46.3); Red Blood Count 4.41 M/uL (4.70-6.10); White Blood Count 7.64 K/ul (4.8-10.8)
[2024-07-04] MEDS: LOSARTAN POTASSIUM 50 MG TAB PO SCH (07:31)
[2024-07-04 07:35] LABS: BUN Creatinine Ratio 16.4 (10-20); Calcium 8.9 mg/dl (8.6-10.3); Creatinine Clr Calc Pharmacy 56.2 ml/min; Magnesium 1.9 mg/dl (1.7-2.4); Phosphorus 3.1 mg/dl (2.5-4.9); Potassium 3.7 mmol/L (3.5-5.1)
--- NOTE | 2024-07-04 14:21 | Hospitalist Progress Note ---
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 He denied fever, radiation of pain to neck or left arm. He is being managed for the following: Likely Community-acquired pneumonia: Sepsis POA: Secondary to above. WBC and respiratory rate elevated at presentation. Patient presented with left-sided chest pain worse with taking a deep breath. Patient reported chills and rigors but no documented fever. Noted to be in sepsis at presentation. Admitting CTA chest with no PE, developing pneumonia in left lower lobe. 2 mm right upper lobe pulmonary nodule. Pt was made aware, recommended to f/u on this w/ CT chest in 12 months. Neg lyme and anaplasma screen. WBC trending down, patient reports feeling better. Continue with Rocephin 07/02 and Doxy 07/02. Continue to monitor, c/w probiotic. Await bl cx x 48 hrs. RLE cellulitis: noted tender/erythematous RLE 07/03 AM exam, pt on antibiotic, neg rle venous doppler. Atb as above. Gradually improving, c/w iv atb Acute kidney injury: Creatinine elevated at 1.46 at presentation, improved to 1.21 next day. Baseline unknown. Continue to monitor. Resume blood pressure medications gradually. Continue to hold celecoxib. Other chronic medical conditions: Continue with/resume home meds as and when able. HTN/AF/HLD: Continue home Xarelto, metoprolol, statin, HCTZ and losartan. GERD: Continue home pantoprazole Full code DVT prophylaxis: Patient on Xarelto Updated pt's sister Brenda at bedside 07/03, answered all her questions. They voiced understanding and are agreeable to plan of care. Admission and Anticipated Discharge Date Admission Date: July 02, 2024 Subjective Patient was seen and examined at bedside. Patient was sitting up in chair, on room air, NAD. Patient reports improving cough, reports improving chest pain and abdominal muscle pain during coughing. Patient reports eating okay and moving loose stools today. Denies nausea or vomiting. Physical Exam Physical Exam: GENERAL: Alert and oriented x3. NAD, on RA. HEENT: No pallor, no icterus. Pupils equal, round and reactive to light. Oral mucosa moist. NECK: No JVD, no neck masses. HEART: S1 and S2 heard. Regular rate and rhythm. No murmur, no gallop. RESPIRATORY SYSTEM: Normal AP diameter. No accessory muscle use. No wheezing, left basal crackles improving. ABDOMEN: Soft, bowel sounds present, nontender, no distention. CENTRAL NERVOUS SYSTEM: No facial droop. Speech is clear. Obeys simple commands. Moves extremities. EXTREMITIES: No edema, no erythema seen x LLE. RLE trace/1+ edema a/w warmth and tender --minimal improvement Results & Data Results & Data Vital Signs (Past 12 Hours) Vital Signs Temp Pulse Pulse Resp BP Pulse Ox Pulse Ox 07/04/24 12:00 97 07/04/24 11:50 36.6 C 53 L 20 105/57 L 94 07/04/24 11:08 97 07/04/24 08:40 36.5 C 58 L 18 136/69 94 07/04/24 07:00 07/04/24 06:51 60 07/04/24 03:39 36.6 C 57 L 16 144/81 H 95 Pulse Ox O2 Del Method O2 Flow Rate O2 Flow Rate 07/04/24 12:00 95 0 0 07/04/24 11:50 Room Air 07/04/24 11:08 07/04/24 08:40 Room Air 07/04/24 07:00 Room Air 07/04/24 06:51 07/04/24 03:39 Room Air
[2024-07-05 07:19] LABS: Hematocrit (blood only) 39.7 % (42.0-52.0); Hemoglobin 13.7 g/dl (14.0-18.0); Mean Corpuscular Hemoglobin 30.7 pg (25.0-34.0); Mean Corpuscular Hgb Conc 34.5 g/dL (32.0-36.0); Mean Platelet Volume 10.9 fL (9.4-12.4); Platelet Count 170 K/uL (130-400); RDW Coefficient of Variation 13.3 % (11.5-14.5); RDW Standard Deviation 43.4 fL (36.4-46.3); Red Blood Count 4.46 M/uL (4.70-6.10); White Blood Count 6.85 K/ul (4.8-10.8)
[2024-07-05 07:34] LABS: BUN Creatinine Ratio 16.4 (10-20); Creatinine Clr Calc Pharmacy 49.3 ml/min
[2024-07-05 08:22] VITALS: RESP 20
[2024-07-05 11:35] VITALS: BP 114/65; TEMP 98.1; O2SAT 94
--- NOTE | 2024-07-05 14:15 | Discharge Summary ---
Date of Service July 05, 2024 Admission HPI Per Admitting Provider The patient is a 79-year-old male with a past medical history of atrial fibrillation, gout, HTN, HLD, GERD, triple bypass, who presented to the ED on 07/02/2024 with complaints of 3-4 days of intermittent central left chest pain. He denies any radiation of this pain to his neck or his left arm. He denies any shortness of breath associated with this. Reports the pain is worse with taking a deep breath. He denies any cough/fever/chills/nausea/vomiting/diarrhea. No hypoxia was noted, on exam, patient is in no apparent distress. On arrival to the ED, labs remarkable for WBC 22, neutrophils 19 anion gap 12, creatinine 1.46 Respiratory panel negative, troponin negative, EKG with no acute changes Chest x-ray showed mild patchy left basilar atelectasis versus developing pneumonia Chest CTA showed possible developing groundglass pneumonia in the left lower lobe, negative for PE, incidental right upper lobe pulmonary nodule noted He was given IV antibiotics and IV fluids in the ED The patient will be admitted for further management of pneumonia Admission Exam Per Admitting Provider Constitutional: WD/WN, vitals as above well developed; no acute distress Eyes: PERRL, conjunctivae normal, anicteric sclerae ENMT: external ear and nose normal, oropharynx normal Neck: trachea midline, no thyromegaly Respiratory: normal respiratory effort, lungs clear to auscultation Cardiovascular: RRR, no murmur, no edema (Diminished lung sounds) Gastrointestinal (Abdomen): normal bowel sounds, soft, nontender, no hepatosplenomegaly Musculoskeletal: no cyanosis or clubbing, extremities motor strength 5/5 Skin: no rashes, warm and dry Neurologic: PERRL, EOMI, accommodation nl, no face palsy, no dysarthria Psychiatric: A+Ox3, euthymic affect Lymphatic: no cervical or axillary lymphadenopathy Principal Diagnosis Likely community-acquired pneumonia Sepsis POA RLE cellulitis Discharge Exam GENERAL: Alert and oriented x3. NAD, on RA. HEENT: No pallor, no icterus. Pupils equal, round and reactive to light. Oral mucosa moist. NECK: No JVD, no neck masses. HEART: S1 and S2 heard. Regular rate and rhythm. No murmur, no gallop. RESPIRATORY SYSTEM: Normal AP diameter. No accessory muscle use. No wheezing, left basal crackles improving. ABDOMEN: Soft, bowel sounds present, nontender, no distention. CENTRAL NERVOUS SYSTEM: No facial droop. Speech is clear. Obeys simple commands. Moves extremities. EXTREMITIES: No edema, no erythema seen x LLE. RLE trace/1+ edema a/w warmth and tender --significant improvement Discharge Data Allergies Allergy/AdvReac Type Severity Reaction Status Date / Time [id number] AdvReac Unknown Uncoded 07/04/24 11:54 Consultations 07/02/24 13:18 ED Decision to Admit Stat Ordered Studies 07/02/24 08:58 CT angio chest PE protocol Stat 07/03/24 12:28 US venous doppler LE RT Routine Hospital Course (1) Chest pain: (2) Pneumonia: Plan 79-year-old male with PMH of A-fib, gout, HTN, HLD, GERD, triple bypass presented to the ED 07/02 with complaint of intermittent left-sided chest pain for 3 to 4 days ago [employer], worse w/ taking a deep breath. He denied fever, radiation of pain to neck or left arm. He was managed for the following: Likely Community-acquired pneumonia: Sepsis POA: Secondary to above. WBC and respiratory rate elevated at presentation. Patient presented with left-sided chest pain worse with taking a deep breath. Patient reported chills and rigors but no documented fever. Noted to be in sepsis at presentation. Admitting CTA chest with no PE, developing pneumonia in left lower lobe. 2 mm right upper lobe pulmonary nodule. Pt was made aware, recommended to f/u on this w/ CT chest in 12 months. Neg lyme and anaplasma screen. WBC normalized, patient has been afebrile, reports improving cough. Continue with Rocephin 07/02 and Doxy 07/02.----To p.o. antibiotic on discharge to complete the course. Continue to monitor, c/w probiotic. Communicated with microbiology lab, no growth in blood culture for 48 hours as of discharge time. RLE cellulitis: noted tender/erythematous RLE 12/1 AM exam, pt on antibiotic, neg rle venous doppler. Atb as above. Gradually improving, Good amount of improvement noted with erythema and warmth. Continue with antibiotic as above. Acute kidney injury: Creatinine elevated at 1.46 at presentation, improved to 1.21 next day. Baseline unknown, Patient's sister who is also a medical provider mentioned that his kidney function baseline is around what he presented with Per her knowledge. patient advised to closely follow-up with PCP for ongoing monitoring, advised to hold losartan and hydrochlorothiazide for next 2 days upon discharge. Other chronic medical conditions: Continue with/resume home meds as and when able. HTN/AF/HLD: Continue home Xarelto, metoprolol, statin, HCTZ and losartan as able. GERD: Continue home pantoprazole Full code DVT prophylaxis: Patient on Xarelto Updated pt's sister Brenda at bedside 07/03, answered all her questions. They voiced understanding and are agreeable to plan of care. Patient is being discharged to home with following instruction at the point of discharge Follow-up with your primary care physician within a week time and likely you will need labs CBC/CMP/magnesium/phosphorus. You are treated for possible community-acquired pneumonia, continue with your antibiotic as prescribed to complete the course. Probiotics will be added. As discussed at the bedside, you will need repeat chest x-ray in about 6 weeks time to document resolution of pneumonia. As discussed at bedside, you have 2 mm right upper pulmonary nodule, you will need repeat CT scan of the chest in 12 months to follow-up on this. You also were noted to have right lower extremity cellulitis, the same antibiotics will be helpful. Regarding concerns for your mild acute kidney dysfunction which is unknown b ecause we do not know the baseline creatinine function, recommend that you hold your losartan and hydrochlorothiazide for 2 days upon discharge and then can resume. Follow-up with your PCP within a week time to make sure that you are moving in a positive direction including your renal functions are good. Take your medications as prescribed. Please make sure that you are able to get your medications today by calling your pharmacy before you leave the hospital so that your treatment continuity is not broken. Home Health Attestation I certify that this patient is under my care and that I, or a physicians medication assistant working with me, had a face to-face encounter that meets the home health [id number] encounter requirements with this patient. The encounter with the patient was in whole, or in part, for the following medical condition, which is the primary reason for home health care (list medical condition): I certify that, based on my findings, the following services are medically necessary home health services: My clinical findings support the need for the above services because: Further, I certify that my clinical findings support that this patient is homebound (i.e. absences from home require considerable and taxing effort and are for medical reasons or islam services or infrequently or of short duration when for other reasons) because: Certification for Home Health Services: Based on the above findings, I certify that this patient is confined to the home and needs intermittent long term care, physical therapy and/or speech therapy or continues to need occupational therapy. The patient is under my care, and I have initiated the establishment of the plan of care. This patient will be followed by a physician who will periodically review the plan of care. Total Time Total Time Spent Total Time Spent (In Minutes): 35 Discharge Plan Discharge Items Patient Disposition: Home - Self-Care Reason For Visit: PNA W/ PLEURISY Discharge Diagnosis: Likely community-acquired pneumonia Sepsis POA RLE cellulitis Activity: Resume your previous activity Non-emergency contact: Primary Care Provider Call non-emergency contact if: you have any medication questions, your symptoms worsen and your temperature is above 101 Follow-up/Referrals: ANUJ CORLEY [Other] Diet: Heart Healthy Addtl Attending Provider Instructions: Follow-up with your primary care physician within a week time and likely you will need labs CBC/CMP/magnesium/phosphorus. You are treated for possible community-acquired pneumonia, continue with your antibiotic as prescribed to complete the course. Probiotics will be added. As discussed at the bedside, you will need repeat chest x-ray in about 6 weeks time to document resolution of pneumonia. As discussed at bedside, you have a 2 mm right upper pulmonary nodule, you will need repeat CT scan of the chest in 12 months to follow-up on this. You also were noted to have right lower extremity cellulitis, the same antibiotics will be helpful. Regarding concerns for your mild acute kidney dysfunction which is unknown because we do not know the baseline creatinine function, recommend that you hold your losartan and hydrochlorothiazide for 2 days upon discharge and then can resume. Follow-up with your PCP within a week time to make sure that you are moving in a positive direction including your renal functions are good. Take your medications as prescribed. Please make sure that you are able to get your medications today by calling your pharmacy before you leave the hospital so that your treatment continuity is not broken. Pending Studies at Discharge: Yes Stand-Alone Forms: My [facility], Smoking Cessation Medications and DC Order Prescriptions: New doxycycline hyclate 100 mg Capsule 100 mg PO BID 5 Days Qty: 10 0RF Advanced Probiotic 625 mg (10 billion cell) Capsule 1 cap PO DAILY 7 Days Qty: 7 0RF cefdinir 300 mg capsule 300 mg PO BID 5 Days Qty: 10 0RF Continued aspirin 81 mg Tablet,Delayed Release (Dr/Ec) 81 mg PO DAILY oxycodone-acetaminophen [Percocet] 5-325 mg tablet 2 tab PO Q6H PRN (Reason: pain) Qty: 20 0RF multivitamin Tablet 1 tab PO QAM pravastatin 40 mg tablet 40 mg PO QPM famotidine 40 mg tablet 40 mg PO QAM metoprolol succinate 100 mg tablet extended release 24 hr 100 mg PO QPM allopurinol 100 mg tablet 100 mg PO QPM amlodipine 10 mg tablet 10 mg PO QAM pantoprazole 40 mg tablet,delayed release (DR/EC) 40 mg PO QAM simethicone 80 mg tablet,chewable 80 mg PO TID PRN (Reason: Bloat) ezetimibe 10 mg tablet 10 mg PO QAM carboxymethylcellulose sodium [Lubricating Plus] 0.5 % dropperette 1 drp OPB DAILY PRN (Reason: Dry Eye(S)) omega-3 acid ethyl esters 1 gram capsule 2 g PO BID cholecalciferol (vitamin D3) 25 mcg (1,000 unit) tablet 25 mcg PO BID Xarelto 20 mg tablet 20 mg PO QPM Held celecoxib [Celebrex] 200 mg Capsule 200 mg PO DAILY Hold Instructions: Resume on 07/12/24. celecoxib 200 mg capsule 200 mg PO QAM Hold Instructions: Resume on 07/12/24. losartan-hydrochlorothiazide 100-12.5 mg tablet 1 tab PO QAM Hold Instructions: Resume on 07/07/24. Discontinued amlodipine 10 mg Tablet 10 mg PO DAILY metoprolol succinate [Toprol XL] 100 mg Tablet Extended Release 24 Hr 100 mg PO DAILY Xarelto 20 mg Tablet 20 mg PO DAILY pravastatin 20 mg Tablet 20 mg PO DAILY methylprednisolone [Medrol (Harlan)] 4 mg tablets,dose pack 4 mg PO DIRECTED Qty: 21 0RF Discharge Orders: Discharge Order (Routine); Ordered 12/03/24 Ordered By: Sonja Mckoy Admission Data Admit Date/Time: 07/02/24 13:24 Attending Provider: Sonja Mckoy Admit Provider: Rachid Marks Primary Care Provider: ANUJ CORLEY Other Providers: Rachid Marks
[2024-07-05 14:36] VITALS: PULSE 74
== END 2024-07-05 15:26 | disposition home or self-care (01) | DRG 871 ==
LOC: ED 07:41 → SUATTDRO 13:24 → EDINP 13:24 → MERGE 13:24 → 2N 16:52